=== PATIENT | male | born 1935 | race Caucasian/White ===

== ENCOUNTER → 2019-02-05 | Outpatient (CLI) | payer OTHER ==
[~2019-02-05] MED LIST: ADULT LOW DOSE81 MG; NEURONTIN 300300 M1; PREVACID 30MG C30 M1 PO
== END ==
LOC: ULTRA 12:18
DX: K76.0 Fatty (change of) liver, not elsewhere classified (principal); K74.60 Unspecified cirrhosis of liver

== ENCOUNTER → 2019-02-25 | Outpatient (CLI) | payer OTHER | LOC: CAT 09:35 → LABMALL 09:39 → CAT 09:39 | PROVIDERS: Internal Medicine Gastroenterology | DX: N20.0 Calculus of kidney (principal); K76.89 Other specified diseases of liver; E27.8 Other specified disorders of adrenal gland; I70.0 Atherosclerosis of aorta ==

== ENCOUNTER → 2019-06-21 | Outpatient (CLI) | payer OTHER | LOC: CAT 12:48 | PROVIDERS: Nurse Practitioner | DX: J98.11 Atelectasis (principal); K76.89 Other specified diseases of liver ==